=== PATIENT | female | born 1955 | race Caucasian/White ===

== ENCOUNTER 2016-12-03 01:52 | Observation (INO) ==
[2016-12-03] MEDS ORDERED: Naloxone 0.4 MG/ML INJ IVP PRN (02:29)
--- NOTE | 2016-12-03 02:38 | Internal Med History&Physical ---
Date of Encounter: 12/03/16 Time of Encounter: 02:35 Assessment and Plan (1) TIA (transient ischemic attack) Current visit: Yes Status: Acute pt with a reported prior history of stroke comes in with neurologic symptoms concerning for a possible infract head CT was unremarkable, she has an ICD in place and it is unclear if it is compatible with an MRI, for now we will consider repeat CT head in 24 hours, CTA for head and neck vessels, 2D echo for eval of LV thrombus, valvular pathology or PFO, unable to review prior echo in our EMR, neuro to weigh in, neuro checks, no need for permissive HTN since last known baseline is >24 hours Qualifiers: Transient cerebral ischemia type: other Qualified Code(s): 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 (2) Diabetes mellitus Current visit: Yes Status: Chronic last known A1c was 9.15c in 12/2015 on oral oral therapy, we will do FS ACHS with basal bolus insulin regimen, will repeat A1c Qualifiers: Diabetes mellitus type: type 2 Diabetes mellitus complication status: with neurologic complications Diabetes mellitus complication detail: with polyneuropathy Diabetes mellitus fpc insulin use: without terminal clerk use Qualified Code(s): E11.42 - Type 2 diabetes mellitus with diabetic polyneuropathy (3) CHF (congestive heart failure) Current visit: Yes Status: Chronic reported LVEF of 30%, unclear is she is adherent with medications and lifestyle recommendations, will need to verify her home medications and resume them, will continue daily weights, fluid restriction, salt restriction Qualifiers: Congestive heart failure type: systolic Congestive heart failure chronicity : chronic Qualified Code(s): I50.22 - Chronic systolic (congestive) heart failure (4) HTN (hypertension) Current visit: Yes Status: Chronic will need to verify home medications and resume them Qualifiers: Hypertension type: essential hypertension Qualified Code(s): I10 - Essential (primary) hypertension Internal Medicine - H&P: HPI Chief complaint: face and left sided numbness Admitted From: Hospital to Hospital Transfer Plans for Post Hospital Care: Home History of present illness: Ms. Birmingham is a 61 year old female with HTN/DM was transferred here from [facility] with symptoms concerning for TIA. She reports being in her usual state of uri until 2 days prior when she noticed left facial and left sided upper and lower extremity numbness. This was the case until yesterday when she felt that her left lower extremity felt weak. She denies any preceding headache, nausea or vomiting, lightheadedness or trauma. She reported to [facility] where she had non contrast head CT that was unremarkable for a head bleed and was sent here for further evaluation. Past Med Surg Social Fam HX - Past Medical History Medical history: CHF, COPD, CVA, diabetes, hypertension, myocardial infarction Psychiatric history: no psych history - Past Surgical History Surgical History: cholecystectomy, hysterectomy, knee replacement, pacemaker/ AICD - Social History Smoking Status: Former smoker Packs per day: 2ppd for years but quit in 2013 Smokeless Tobacco Status: No Alcohol use: none Drug use: none Current living situation: Home - Independent - Family History Father History Unknown: Yes Mother Adopted: No Living Status: Hx Family Endocrine Disorder: Yes (DM) Internal Medicine - H&P: Meds Carvedilol [Coreg] 6.25 mg ORAL RINSE BID 12/03/16 [History] Furosemide [Lasix] 12/03/16 [History] Lisinopril [Zestril] 10 mg ORAL RINSE DAILY 12/03/16 [History] Allergies barium sulfate [From E-Z-Cat] Allergy (Verified 08/24/16 04:37) Hives brompheniramine [From Dimetapp Cold-Allergy (PE)] Allergy (Verified 08/24/16 04: 37) Hives ibuprofen Allergy (Verified 08/24/16 04:37) Hives iodine Allergy (Verified 08/24/16 04:37) Hives Penicillins [PCN] Allergy (Verified 08/24/16 04:37) Hives phenylephrine [From Dimetapp Cold-Allergy (PE)] Allergy (Verified 08/24/16 04:37 ) Hives wool Adverse Reaction (Verified 08/24/16 04:37) Diarrhea All Systems PM: A 10-system review of systems was performed and is negative for pertinent findings except as documented above in the HPI. - Constitutional Vitals: Vital Signs Temperature 97.5 F L 12/02/16 20:34 Pulse Rate 84 12/02/16 20:34 Respiratory Rate 16 12/02/16 20:34 Blood Pressure 133/75 12/02/16 20:34 O2 Sat by Pulse Oximetry 96 12/02/16 20:34 Temperature 98.8 F 12/02/16 23:24 Pulse Rate 85 12/02/16 23:24 Respiratory Rate 24 12/02/16 23:24 Blood Pressure 134/85 12/02/16 23:24 O2 Sat by Pulse Oximetry 98 12/02/16 23:24 PHYSICAL EXAMINATION: GENERAL: Adult female, morbidly obese looking, lying in bed with no sign of pain or distress, Alert, HEENT: NC/AT, EOMI, PERRLA, anicteric sclera, normal conjunctiva, supple, clear nares, moist mucous membranes, RESP: lungs are clear to auscultation bilaterally reduced AE at the bases CARDIO: normal heart sounds with no murmur, no JVD, GI: Soft, full, no tenderness, no organomegaly felt, normal bowel sounds heard MUSCULOSKELETAL: no deformities noted, rest per skin exam NEUROLOGIC: CN 2-12 intact grossly, normal power, tone, and sensation PSYCHIATRY: AAO x 3. Mood is fair, SKIN: right upper extremity skin ulcers with scabs, bilateral reddened shins with right worse than left Internal Med - H&P Results - EKG Data -: EKG Interpreted by Myself (paced rhythm) - Diagnostic Studies CT scan - head Status: image reviewed by me Chest x-ray Status: image reviewed by me
[2016-12-03] MEDS ORDERED: Dextrose Gel 15 GM PO PRN ×2 (02:39)
[2016-12-03] MEDS ORDERED: *HR* Dextrose 50 % in Water (Syg) 50 ML SYRINGE IVP PRN (02:39)
[2016-12-03] MEDS ORDERED: D5% in Water 1,000 ML IVC PRN (02:39)
[2016-12-03] MEDS: Insulin LISPRO 300 UNITS/3 ML VIAL SQ SCH ×5 (02:58→21:35)
[2016-12-03 07:04] LABS: BUN/Creatinine Ratio 14 (6-26); Blood Urea Nitrogen 14 mg/dL (7-20); Calcium 8.8 mg/dL (8.6-10.8); Carbon Dioxide 33 mEq/L (19-29); Chloride 98 mEq/L (98-109); Chol/HDL Ratio 3.3 (0-4.9); Cholesterol 136 mg/dL (< 200); Glucose 196 mg/dL (70-99); HDL Cholesterol 41 mg/dL (40-59); LDL Cholesterol,Calculated 73 mg/dL (0-99); Magnesium 1.5 mg/dL (1.6-2.6); Osmolality,Calculated 296 (280-300); Phosphorous 4.4 mg/dL (2.3-4.7); Sodium 140 mEq/L (136-145); Triglycerides 110 mg/dL (< 150); eGFR For African Americans > 60 (> 60); eGFR For Non-African Americans 59 (> 60)
[2016-12-03 08:24] LABS: Hemoglobin A1C 8.6 %
[2016-12-03] MEDS: Aspirin 81 MG TAB.CHEW PO SCH (08:36)
--- NOTE | 2016-12-03 12:49 | Internal Med Progress Note ---
Date of Encounter: 12/03/16 Time of Encounter: 10:10 - Assessment and plan (1) TIA (transient ischemic attack) Current Visit: Yes Status: Acute Assessment and plan: Patient has a reported prior history of stroke. She presented to ER with symptoms concerning for possible TIA. This morning patient only complains of left leg numbness. She reports to me that she never had any other symptoms other than that. Patient is extremely debilitated and obese. It is hard for her to move in the bed, it is hard to assess extremity strength due to this. Patient has an implanted pacemaker and I have contacted MRI about finding out if it is compatible and we can get an MRI. If not, she has another CAT scan ordered for 24 hours after the first one. Patient's speech is not slurred, however it is normal for her. PERRLA, no nystagmus, facial movements are symmetrical, patient follows commands. At this point in the day, the echo and carotids are not resulted. Neurology consult is also pending. 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 1.5 L fluid restriction Strict I&O Daily weight Qualifiers: Congestive heart failure type: systolic Congestive heart failure chronicity : chronic Qualified Code(s): I50.22 - Chronic systolic (congestive) heart failure (3) Edema Current Visit: No Status: Acute Assessment and plan: Plan as above Qualifiers: Edema type: unspecified Qualified Code(s): R60.9 - Edema, unspecified (4) Diabetes mellitus Current Visit: Yes Status: Chronic Assessment and plan: A1c is 8.6. Accu-Cheks before meals at bedtime Sliding scale insulin Diabetic diet Qualifiers: Diabetes mellitus type: type 2 Diabetes mellitus complication status: with neurologic complications Diabetes mellitus complication detail: with polyneuropathy Diabetes mellitus usp insulin use: without usp use Qualified Code(s): E11.42 - Type 2 diabetes mellitus with diabetic polyneuropathy (5) HTN (hypertension) Current Visit: Yes Status: Chronic Assessment and plan: Chronic. Continue home medications. Qualifiers: Hypertension type: essential hypertension Qualified Code(s): I10 - Essential (primary) hypertension (6) Morbid obesity with BMI of 50.0-59.9, adult Current Visit: Yes Status: Chronic Assessment and plan: Chronic. Lifestyle modification. (7) Physical debility Current Visit: Yes Status: Acute Assessment and plan: Patient is weak, debilitated. She is unable to assist with moving herself in the bed. She has very limited range of motion to her extremities. Physical therapy and occupational therapy consulted. - Time Spent With Patient less than 15 minutes - Subjective Interval history: Patient resting quietly in bed, she was seen and examined at about 10:10 AM. Patient was transferred here from [place]. Per her Barb nurse, ER staff at [facility] said that patient is at baseline currently. She reports continued left leg numbness. Patient does have feeling in the extremity. She does have large , mild pitting edema lower extremities. Patient has a large abdominal hernia that is not strangulated and does not cause her pain. There is no tenderness to palpation and she denies constipation. Patient does wear oxygen at home at 2 L as needed. Patient is morbidly obese and debilitated. She requires total lift assistance when we move her up in the bed. She is unable to help. She says that she lives at home with her . She states that her neighbors are helpful with her. She absolutely does not want any home health assistance at all. greeter guest services has been consult did. I have also consulted physical therapy and occupational therapy. Per charge nurse, patient lives in a camper behind her 's home, as they are . She has multiple scabbed round areas to her upper extremities, she says they are flea bites. They are not infected and not draining. Patient has an implanted pacemaker. I am waiting on MRI to let me know if it is compatible. Patient will need to stay another night for physical therapy and occupational therapy, as well as repeat CT scan or MRI in the morning. - Constitutional Vitals: Temp Pulse Resp BP Pulse Ox 97.4 F L 84 17 108/66 92 12/03/16 10:48 12/03/16 10:48 12/03/16 10:48 12/03/16 10:48 12/03/16 10:48 General appearance: Present: cooperative, A&O X 3, morbidly obese, pleasant, answers questions appropriately - Head Head exam: Present: normal inspection - Eye Eye exam: Present: normal appearance, conjuntiva pink. Absent: nystagmus - ENT ENT exam: Present: mucous membranes moist, normal exam, normal external ear exam - Neck Neck exam general surgery: Present: normal inspection. Absent: lymphadenopathy , tenderness - Respiratory Respiratory exam: Present: decreased breath sounds, CTAB. Absent: accessory muscle use, respiratory distress - Cardiovascular Cardiovascular exam: Present: RRR, +S1, +S2. Absent: diastolic murmur, systolic murmur - GI/Abdominal GI/Abdominal exam: Present: distended, hernia, normal bowel sounds, soft. Absent: hepatomegaly, pulsatile mass, tenderness - Extremities Exam Extremities exam: Present: pedal edema, warm. Absent: normal inspection, tenderness - Neurological Exam Neurological exam: Present: alert, oriented X3, no focal deficits. Absent: facial droop, speech deficit Internal Medicine: Result - Labs CBC & Chem 7: 12/03/16 05:14 Labs: BMP 12/03/16 05:14 Sodium 140 Potassium 4.0 Chloride 98 Carbon Dioxide 33 H BUN 14 Creatinine 0.97 Glucose 196 H Calcium 8.8 Consult Discharge Plan - Plan Referrals: NO,PCP [Primary Care Provider] -
[2016-12-03] MEDS: Acetaminophen 325 MG TABLET PO PRN ×2 (16:50→23:10)
--- NOTE | 2016-12-03 19:10 | Neurology - Consult Note ---
Date of Encounter: 12/03/16 Time of Encounter: 19:08 Assessment and Plan (1) Left leg pain Current Visit: Yes Status: Acute It is my suspicion that her left leg pain is either due to perhaps the left L5 radiculopathy, versus left peroneal neuropathy at the knee, versus mechanical etiologies. Unfortunately she is not a candidate for an MRI, and she is likely not a good candidate for any type of surgical procedure. My recommendation would be a trial of Neurontin perhaps 300 mg and titrate up to 3 times a day. If this is ineffective then I would simply recommend either oral pain management or referral to a pain management Center for consideration of other modalities. I am not convinced of an acute cerebral infarct as pain is generally not a prominent part of the presenting symptomatology . I will reevaluate her your request. The documentation in the history of HPI and plan were at least partially created by [employer] voice recognition technology by Dr. Amaya. Errors in grammar, wording or other phrases may exist. If errors are found after the documentation signed, they will be addressed individually in the addendum section of this document when appropriate. History of Present Illness HPI: Ms. Birmingham is a 61 year old female with a complicated history of diabetes mellitus coronary artery disease hypertension, previous TIAs and morbid obesity presents for admission to [facility] with complaints of left lower extremity pain and paresthesias. She states it is increasingly difficult for her to walk. She is able to however bear her weight and was ambulating in the halls yesterday. Today she was able to transfer from her bed to the bedside commode. She has had multiple admissions for strokelike symptoms apparently at [facility]. CT scan of the head was completed I did review the study myself and it is normal. Unfortunately she is not a candidate for MRI scan because of an internal pacemaker defibrillator. Past Med Surg Social Fam HX - Past Medical History Medical history: CHF, COPD, CVA, diabetes, hypertension, myocardial infarction Psychiatric history: no psych history - Past Surgical History Surgical History: cholecystectomy, hysterectomy, knee replacement, pacemaker/ AICD - Social History Smoking Status: Former smoker Packs per day: 2ppd for years but quit in 2013 Smokeless Tobacco Status: No Alcohol use: none Drug use: none - Family History Father History Unknown: Yes Mother Adopted: No Living Status: Hx Family Endocrine Disorder: Yes (DM) Medications and Allergies Aspirin 81 mg PO DAILY 12/03/16 [History] Calcium Carbonate [Calcium] 500 mg PO DAILY 12/03/16 [History] Cholecalciferol (D-3) [Vitamin D] 1,000 unit PO DAILY 12/03/16 [History] Cyanocobalamin (Vitamin B-12) [Vitamin B12] 1,000 mcg PO DAILY 12/03/16 [History ] Oxygen 2 l .ROUTE AD 12/03/16 [History] Allergies barium sulfate [From E-Z-Cat] Allergy (Verified 08/24/16 04:37) Hives brompheniramine [From Dimetapp Cold-Allergy (PE)] Allergy (Verified 08/24/16 04: 37) Hives ibuprofen Allergy (Verified 08/24/16 04:37) Hives iodine Allergy (Verified 08/24/16 04:37) Hives Penicillins [PCN] Allergy (Verified 08/24/16 04:37) Hives phenylephrine [From Dimetapp Cold-Allergy (PE)] Allergy (Verified 08/24/16 04:37 ) Hives wool Adverse Reaction (Verified 08/24/16 04:37) Diarrhea All Systems: A 10-system review of systems was performed and is negative for pertinent findings except as documented above in the HPI. Review of Systems: A 10 point review of systems is consistent with a history of present illness. Physical Examination - Vital Signs Vital Signs: Initial Vital Signs Temp Pulse Resp BP Pulse Ox 97.5 F L 83 18 116/73 93 12/03/16 01:50 12/03/16 01:50 12/03/16 01:50 12/03/16 01:50 12/03/16 01:50 - Exam Exam: Neurologic examinations performed and finds following: For cerebral functions as she is awake and alert follows commands and answers questions appropriately. There is no agnosia or aphasia or apraxia identified. A full Mini-Mental status assessment was not performed. Cranial nerves-pupils are equal and reactive to light and accommodation extraocular motility is intact. There is no ptosis. Sensory to face is intact. Mastication is intact. There is no facial asymmetry is identified. Speech is not dysarthric. Hearing is intact symmetrically, soft palate elevates bilaterally upon phonation. Motor examination-is difficult and not reliable due to issues of body habitus. She is very large and has giveaway weakness throughout. I find no focal or lateralized deficits however. She is able to dorsiflex and plantar flex the left foot without difficulty. Sensory exam finds paresthesias and hyperesthesia of the left lower extremity below the knee and on the dorsum of the foot. Deep tendon reflexes are absent throughout. No long track signs are identified. Results - Laboratory Findings CBC and BMP: 12/03/16 05:14 Abnormal lab findings: Abnormal lab results Carbon Dioxide 33 mEq/L (19-29) H 12/03/16 05:14 Est GFR (Non-Af Amer) 59 (> 60) L 12/03/16 05:14 Glucose 196 mg/dL (70-99) H 12/03/16 05:14 POC Glucose 213 (58-89) H 12/03/16 15:16 Hemoglobin A1c 8.6 % (-5.6) H 12/03/16 05:14 Magnesium 1.5 mg/dL (1.6-2.6) L 12/03/16 05:14 Consult Discharge Plan - Plan Referrals: NO,PCP [Primary Care Provider] -
[2016-12-03] MEDS ORDERED: Perflutren Lipid Microsphere 1.3 ML in 0.9 % Sodium Chloride 8.7 ML IVP ONE (20:40)
[2016-12-04] MEDS: Nystatin POWDER 30 GM BOTTLE TP SCH ×3 (00:35→19:45)
[2016-12-04 04:16] LABS: BUN/Creatinine Ratio 19 (6-26); Blood Urea Nitrogen 19 mg/dL (7-20); Calcium 8.5 mg/dL (8.6-10.8); Carbon Dioxide 28 mEq/L (19-29); Chloride 100 mEq/L (98-109); Glucose 187 mg/dL (70-99); Osmolality,Calculated 291 (280-300); Potassium 4.9 mEq/L (3.5-4.5); Sodium 137 mEq/L (136-145); eGFR For African Americans > 60 (> 60); eGFR For Non-African Americans 58 (> 60)
[2016-12-04 04:36] LABS: Hematocrit 33.9 % (35.3-44.9); Hemoglobin 10.3 g/dL (11.5-15.4); Mean Corpuscular HGB Conc 30.4 g/dL (31.6-35.5); Mean Corpuscular Hemoglobin 27.8 pg (28.0-33.3); Mean Corpuscular Volume 91.6 fL (83.0-100.0); Platelet Count 238 K/mcL (140-400); Red Cell Distribution Width 18.4 % (11.5-14.5)
[2016-12-04 04:37] LABS: Basophils # 0.1 K/mcL (0.0-0.2); Basophils % 0.6 %; Eosinophils # 0.5 K/mcL (0.0-0.6); Eosinophils % 3.7 %; Lymphocytes # 3.2 K/mcL (0.6-4.6); Lymphocytes % 23.5 %; Mean Platelet Volume 10.9 fL (9.4-12.4); Monocytes # 0.9 K/mcL (0.0-1.3); Monocytes % 6.4 %; Neutrophils # 8.9 K/mcL (1.6-8.9); Nucleated Red Blood Cells 0.1 /100 WBC (0); Platelet Estimate Normal (Normal); Segmented Neutrophils % 65.2 %
--- NOTE | 2016-12-04 07:24 | ECHO - Doppler Report ---
Echo with Saline and Imaging Enhancement Agent Name: Katelyn Birmingham Date of Study: 12/03/2016 Date: 1955 Ht: 67.0 in Medical Record#: [id number] Age: 61 Wt: 350.0 lb Gender: Female BSA: 2.57 Order #: [id number] Location: [facility] Room #: [id number] Reading Physician: Dannie Harmon MD, [facility] Welder: Loreta Parr Ordering Physician: Cristopher Ulloa MD Primary Physician: None Indications: Stroke workup Impressions: Technically sub-optimal due to body habitus. Echo contrast was used. Moderately dilated left ventricle. Moderate-severe LV systolic dysfunction, LVEF 35%. There is global hypokinesis with regional variations. Mild-moderate concentric left ventricular hypertrophy. Moderate left ventricular diastolic dysfunction. Mildly dilated right ventricle with normal systolic function. Moderately dilated left atrium. No evidence of intracardiac shunting with agitated saline contrast. No significant valvular dysfunction. Mild pulmonary hypertension. Estimated RVSP = 36 mmHg. Left Ventricular Wall Motion: Rest Echo Findings The apex, apical inferior, mid inferior, basal inferior, apical anterior, mid anterior, basal anterior, apical septal, mid inferior septal, basal inferior septal, apical lateral, mid anterior lateral, basal anterior lateral, mid anterior septal, mid inferior lateral, basal anterior septal and basal inferior lateral chase were hypokinetic. Findings: Study Quality * Technically sub-optimal due to body habitus. Echo contrast was used. ECG Findings * Sinus rhythm with BBB. Left Ventricle * Moderately dilated left ventricle. * Moderate-severe LV systolic dysfunction, LVEF 35%. There is global hypokinesis with regional variations. * Mild-moderate concentric left ventricular hypertrophy. * Moderate left ventricular diastolic dysfunction. Right Ventricle * Mildly dilated right ventricle with normal systolic function. Left Atrium * Moderately dilated left atrium. Right Atrium * Normal right atrial size. Interatrial Septum * No evidence of intracardiac shunting with agitated saline contrast. Aorta * Normally sized aortic root. Pericardium * There is no pericardial effusion present. IVC * The IVC is not well evaluated. Aortic Valve * Aortic valve not well visualized. * No aortic stenosis. * No aortic regurgitation. Mitral Valve * Mildly calcified mitral valve leaflets. * No mitral stenosis. * Trace mitral regurgitation. Tricuspid Valve * Tricuspid valve not well visualized. * No tricuspid stenosis. * Trace tricuspid regurgitation. * Mild pulmonary hypertension. Estimated RVSP = 36 mmHg. Pulmonic Valve * Pulmonic valve not well visualized. * No pulmonic stenosis. * Trace pulmonic regurgitation. History Hypertension Diabetes Hypercholesteremia Years 41 Packs 2 Family History of CAD Congestive Heart Failure Pacer/ICD Implant Contrast: Definity 1.3 ml in 8.7 ml of saline 3 ml. Agitated saline 20 ml. Measurements: BP: 99/ 64 2D Normal Values RVIDd: 4.50 cm IVSd: 1.40 cm 0.6 - 1.0 cm LVIDd: 6.00 cm 3.7 - 5.6 cm LVPWd: 1.20 cm 0.6 - 1.1 cm LVIDs: 5.00 cm 1.5 - 3.6 cm AO: 3.50 cm < 4.0 cm LA volume: 100 Mitral Valve Peak E:1.02 m/sec Peak A:.70 m/sec E/A Ratio:1.5 Peak E' Lat John:3.31 cm/s Peak E' Med John:3.7 cm/s E/E' Lat Ratio:30.8 E/E' Med Ratio:27.6 Tricuspid Valve TV Regurg Peak Grad: 31.00mmHg TV Regurg Peak John: 2.80m/sec Updated by Dannie Harmon MD, [facility] on 12/04/2016 7:19:37 AM electronically signed on 12/04/2016 7:20:21 AM with status of Final Wall Motion Garcia: 1=Normal, 2=Hypokinesis, 3=Akinesis, 4=Dyskinesis, 5=Aneurysmal, 6=Hyperkinetic, X=Not Visualized (Blank)=Missing
[2016-12-04] MEDS: Aspirin 81 MG TAB.CHEW PO SCH (09:21)
[2016-12-04] MEDS: Insulin LISPRO 300 UNITS/3 ML VIAL SQ SCH ×4 (09:21→21:35)
[2016-12-04] MEDS: Gabapentin 300 MG CAPSULE PO SCH ×2 (10:47→19:45)
[2016-12-04] MEDS: Acetaminophen 325 MG TABLET PO PRN ×2 (10:47→19:45)
[2016-12-04 10:49] LABS: Bilirubin,Urine Negative (Negative); Blood,Urine Negative (Negative); Clarity,Urine Clear (Clear); Color,Urine Yellow (Yellow); Glucose,Urine (UA) Normal (Normal); Ketones,Urine Negative (Negative); Leukocyte Esterase,Urine Negative (Negative); Nitrite,Urine Positive (Negative); Protein,Urine Negative (Neg-Trace); Specific Gravity,Urine 1.026 (1.010-1.025); Urobilinogen,Urine Normal (Normal)
[2016-12-04 10:51] LABS: Bacteria,Urine Many per hpf (None-Few); Hyaline Casts,Urine None Seen per lpf (None-Few); RBC,Urine 0-3 per hpf (0-3); Squamous Epithelial Cell,Urine Many per lpf (None-Few); WBC,Urine 0-3 per hpf (0-3)
--- NOTE | 2016-12-04 14:22 | Carotid Imaging Report ---
Carotid Duplex Patient Name:Katelyn Birmingham Order Number:[id number] Procedure Date:12/03/2016 Date:1955ge:61 yrs Gender:Female Lt BP:99 / 64 mmHg Rt.BP:99 / 64 mmHgHeart Rate: Location:[facility] Room #: 3B46 Energy Infrastructure Engineer:Loreta Parr Referring MD:Cristopher Ulloa MD commercial sales director:None Reading MD:Roberth Gamboa MD Primary Indications:Evaluate for critical stenosis Risk Factors Yes/No Hypertension Hypercholesterolemia Diabetes Hx of TIA Smoker Previous Impressions: Findings: Left mid ICA has a severe, 60-79% stenosis. Recommendations: Risk Factor Modification, Medical Therapy, and Follow up exam 12 months. Findings Carotid Duplex: Right: There is nonstenotic plaque in the right bifurcation. There is smooth heterogeneous plaque. Left: There is 40-59% stenosis in the left proximal internal carotid artery. There is smooth homogeneous plaque. There is 60-79% stenosis in the left mid internal carotid artery. There is smooth homogeneous plaque. Prior Study: No prior study available for comparison. Carotid Results Right PSV EDV Assessment Proximal CCA 105 35 Normal Mid CCA 89 32 Normal Distal CCA 74 31 Normal Bifurcation 88 36 Non Stenotic Plaque Proximal ICA 83 35 Normal Mid ICA 72 28 Normal Distal ICA 68 28 Normal ECA 72 21 Normal Vertebral Artery 65 19 Antegrade Flow Left PSV EDV Assessment Proximal CCA 119 34 Normal Mid CCA 91 25 Normal Distal CCA 87 24 Normal Bifurcation 86 31 Normal Proximal ICA 118 47 40-59% stenosis Mid ICA 138 58 60-79% stenosis Distal ICA 93 40 Normal ECA 112 20 Normal Vertebral Artery 58 24 Antegrade Flow Ratio's Right ICA/CCA Ratio: 0.93 ICA/CCA Values: 83/89 Left ICA/CCA Ratio: 1.52 ICA/CCA Values: 138/91 Updated by Roberth Gamboa MD on 12/04/2016 2:16:13 PM electronically signed on 12/04/2016 2:16:26 PM with status of Final
--- NOTE | 2016-12-04 18:12 | Internal Med Progress Note ---
Date of Encounter: 12/04/16 Time of Encounter: 10:45 - Assessment and plan (1) TIA (transient ischemic attack) Current Visit: Yes Status: Inactive Assessment and plan: Patient was seen by neurology. She is not a candidate for an MRI due to her implanted pacemaker. She has had a CAT scan 2 both with no acute intracranial abnormality. Patient reports right leg numbness. Neurology feels that it is most likely due to neuropathy. She has been started on gabapentin 300 mg twice a day. We will need to assess for effectiveness. 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 There is moderately dilated left ventricle, moderate to severe systolic dysfunction with LVEF of 35%. Global hypokinesis with regional variations. There is mild to moderate concentric LV hypertrophy there is mildly dilated right ventricle with normal systolic function, no evidence of intracardiac shunting. No significant valvular dysfunction. Mild pulmonary hypertension. Repeat chest x-ray today shows no significant change in pulmonary edema and left -sided pleural effusion. 1.5 L fluid restriction Lasix 40 mg IV daily. Strict I&O Daily weight Qualifiers: Congestive heart failure type: systolic Congestive heart failure chronicity : chronic Qualified Code(s): I50.22 - Chronic systolic (congestive) heart failure (3) Edema Current Visit: No Status: Acute Assessment and plan: Plan as above Qualifiers: Edema type: unspecified Qualified Code(s): R60.9 - Edema, unspecified (4) Diabetes mellitus Current Visit: Yes Status: Chronic Assessment and plan: A1c is 8.6. Accu-Cheks before meals at bedtime Sliding scale insulin Diabetic diet Qualifiers: Diabetes mellitus type: type 2 Diabetes mellitus complication status: with neurologic complications Diabetes mellitus complication detail: with polyneuropathy Diabetes mellitus public health insulin use: without public health use Qualified Code(s): E11.42 - Type 2 diabetes mellitus with diabetic polyneuropathy (5) HTN (hypertension) Current Visit: Yes Status: Chronic Assessment and plan: Chronic. Continue home medications. Qualifiers: Hypertension type: essential hypertension Qualified Code(s): I10 - Essential (primary) hypertension (6) Morbid obesity with BMI of 50.0-59.9, adult Current Visit: Yes Status: Chronic (7) Physical debility Current Visit: Yes Status: Acute Assessment and plan: Patient states that she would be willing to go to a rehabilitation facility to regain her strength. She said she would like to be placed somewhere near [facility] so she is close to family. Physical therapy has recommended inpatient physical therapy due to global debility. [employer] Continuous Churn on board. (8) UTI (urinary tract infection) Current Visit: Yes Status: Acute Assessment and plan: Leukocytosis this morning. Repeat chest x-ray showed no infiltrates. Pleural effusions remain. She has not had a fever today. Repeat urine shows specific gravity 1.026, positive for nitrites, no leukocyte esterase, many bacteria. Culture is pending. Prior urinary tract infection in December 2015. Culture showed Escherichia coli that was sensitive to Rocephin. Patient has been started on IV Rocephin. Will continue until culture and sensitivity are available. Qualifiers: Urinary tract infection type: acute cystitis Hematuria presence: without hematuria Qualified Code(s): N30.00 - Acute cystitis without hematuria - Time Spent With Patient less than 15 minutes - Subjective Interval history: Patient resting quietly in bed, she was seen and examined at about 10:10 AM. Patient was transferred here from [place]. Per her Barb nurse, ER staff at [facility] said that patient is at baseline currently. She reports continued left leg numbness. Patient does have feeling in the extremity. She does have large , mild pitting edema lower extremities. Patient has a large abdominal hernia that is not strangulated and does not cause her pain. There is no tenderness to palpation and she denies constipation. Patient does wear oxygen at home at 2 L as needed. Patient is morbidly obese and debilitated. She requires total lift assistance when we move her up in the bed. She is unable to help. She says that she lives at home with her . She states that her neighbors are helpful with her. She absolutely does not want any home health assistance at all. administrative services director has been consult did. I have also consulted physical therapy and occupational therapy. Per charge nurse, patient lives in a camper behind her 's home, as they are . She has multiple scabbed round areas to her upper extremities, she says they are flea bites. They are not infected and not draining. Patient has an implanted pacemaker. I am waiting on MRI to let me know if it is compatible. Patient will need to stay another night for physical therapy and occupational therapy, as well as repeat CT scan or MRI in the morning. - Constitutional Vitals: Temp Pulse Resp BP Pulse Ox 98.0 F 77 19 124/66 92 12/04/16 11:15 12/04/16 13:48 12/04/16 13:48 12/04/16 16:01 12/04/16 13:48 General appearance: Present: cooperative, A&O X 3, morbidly obese, pleasant, answers questions appropriately - Head Head exam: Present: normal inspection - Eye Eye exam: Present: normal appearance, PERRL, conjuntiva pink. Absent: nystagmus - ENT ENT exam: Present: mucous membranes moist, normal exam, normal external ear exam - Neck Neck exam general surgery: Present: normal inspection. Absent: lymphadenopathy , tenderness - Respiratory Respiratory exam: Present: decreased breath sounds, CTAB. Absent: rales, respiratory distress, rhonchi, wheezes - Cardiovascular Cardiovascular exam: Present: RRR, +S1, +S2, tachycardia. Absent: diastolic murmur, irregular rhythm - Neurological Exam Neurological exam: Present: alert, oriented X3, no focal deficits, strengths equal and symetr throughout. Absent: facial droop, speech deficit Internal Medicine: Result - Labs CBC & Chem 7: 12/04/16 03:33 12/04/16 03:33 Labs: Short CBC 12/04/16 Range/Units 03:33 WBC 13.7 H (4.3-11.1) K/mcL Hgb 10.3 L D (11.5-15.4) g/dL Hct 33.9 L (35.3-44.9) % Plt Count 238 (140-400) K/mcL Neutrophils # 8.9 (1.6-8.9) K/mcL BMP 12/04/16 03:33 Sodium 137 Potassium 4.9 H Chloride 100 Carbon Dioxide 28 BUN 19 Creatinine 0.98 Glucose 187 H Calcium 8.5 L Urine 12/04/16 Range/Units 10:15 Urine Color Yellow (Yellow) Urine Clarity Clear (Clear) Urine pH 5.0 (5.0-8.0) pH Units Ur Specific [place] 1.026 H (1.010-1.025) Urine Protein Negative (Neg-Trace) mg/dL Urine Glucose (UA) Normal (Normal) mg/dL - Impressions Impressions Chest X-Ray 12/04/16 09:38 IMPRESSION: No significant change in pulmonary edema and left-sided pleural effusion. D/ / Starr Martinez MD / Starr Martinez MD Interpreting Provider: Starr Martinez MD Head CT 12/04/16 20:30 IMPRESSION: No acute intracranial abnormality. D/ / Russell Jimenez MD / Russell Jimenez MD Interpreting Provider: Russell Jimenez MD Consult Discharge Plan - Plan Referrals: NO,PCP [Primary Care Provider] -
[2016-12-04] MEDS: Furosemide 40 MG/4 ML VIAL IVP SCH (19:44)
[2016-12-05] MEDS: Acetaminophen 325 MG TABLET PO PRN ×2 (06:12→21:46)
[2016-12-05 06:30] LABS: Basophils # 0.1 K/mcL (0.0-0.2); Basophils % 0.5 %; Eosinophils # 0.5 K/mcL (0.0-0.6); Eosinophils % 3.5 %; Hematocrit 32.9 % (35.3-44.9); Immature Granulocytes % 0.5 % (0-4); Lymphocytes # 3.1 K/mcL (0.6-4.6); Lymphocytes % 23.2 %; Mean Corpuscular HGB Conc 30.4 g/dL (31.6-35.5); Mean Corpuscular Hemoglobin 27.3 pg (28.0-33.3); Mean Corpuscular Volume 89.9 fL (83.0-100.0); Mean Platelet Volume 10.2 fL (9.4-12.4); Monocytes # 0.7 K/mcL (0.0-1.3); Monocytes % 5.2 %; Neutrophils # 8.8 K/mcL (1.6-8.9); Nucleated Red Blood Cells 0.2 /100 WBC (0); Platelet Count 247 K/mcL (140-400); Red Blood Count 3.66 M/mcL (3.82-4.97); Red Cell Distribution Width 18.1 % (11.5-14.5); Segmented Neutrophils % 67.1 %
[2016-12-05 06:47] LABS: BUN/Creatinine Ratio 22 (6-26); Blood Urea Nitrogen 23 mg/dL (7-20); Calcium 8.5 mg/dL (8.6-10.8); Carbon Dioxide 34 mEq/L (19-29); Chloride 96 mEq/L (98-109); Glucose 182 mg/dL (70-99); Osmolality,Calculated 292 (280-300); Potassium 4.9 mEq/L (3.5-4.5); Sodium 137 mEq/L (136-145); eGFR For African Americans > 60 (> 60); eGFR For Non-African Americans 55 (> 60)
[2016-12-05] MEDS: Nystatin POWDER 30 GM BOTTLE TP SCH ×2 (09:19→21:42)
[2016-12-05] MEDS: Insulin LISPRO 300 UNITS/3 ML VIAL SQ SCH ×4 (09:19→21:42)
[2016-12-05] MEDS: Furosemide 40 MG/4 ML VIAL IVP SCH (09:19)
[2016-12-05] MEDS: Gabapentin 300 MG CAPSULE PO SCH ×2 (09:20→21:41)
[2016-12-05] MEDS: Aspirin 81 MG TAB.CHEW PO SCH (09:20)
--- NOTE | 2016-12-05 17:46 | Internal Med Progress Note ---
Date of Encounter: 12/05/16 Time of Encounter: 09:45 - Assessment and plan (1) TIA (transient ischemic attack) Current Visit: Yes Status: Inactive Assessment and plan: Patient was seen by neurology. She is not a candidate for an MRI due to her implanted pacemaker. She has had a CAT scan 2 both with no acute intracranial abnormality. Patient reports right leg numbness. Neurology feels that it is most likely due to neuropathy. She has been started on gabapentin 300 mg twice a day. We will need to assess for effectiveness. Symptoms have resolved. Patient is neurologically intact. 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 Patient does have some dyspnea with moving in the bed, however she is obese and deconditioned. She is supple mental oxygen, she has oxygen at home as well. Continue to monitor 1.5 L fluid restriction Lasix 40 mg IV daily. Strict I&O Daily weight Qualifiers: Congestive heart failure type: systolic Congestive heart failure chronicity : chronic Qualified Code(s): I50.22 - Chronic systolic (congestive) heart failure (3) Edema Current Visit: No Status: Acute Assessment and plan: Plan as above Qualifiers: Edema type: unspecified Qualified Code(s): R60.9 - Edema, unspecified (4) Diabetes mellitus Current Visit: Yes Status: Chronic Assessment and plan: Chronic. Continue sliding scale insulin Accu-Cheks before meals at bedtime Diabetic diet Hypoglycemia protocol Qualifiers: Diabetes mellitus type: type 2 Diabetes mellitus complication status: with neurologic complications Diabetes mellitus complication detail: with polyneuropathy Diabetes mellitus jail insulin use: without jail use Qualified Code(s): E11.42 - Type 2 diabetes mellitus with diabetic polyneuropathy (5) HTN (hypertension) Current Visit: Yes Status: Chronic Assessment and plan: Blood pressures been well controlled in inpatient setting. We will continue home medications. Qualifiers: Hypertension type: essential hypertension Qualified Code(s): I10 - Essential (primary) hypertension (6) Morbid obesity with BMI of 50.0-59.9, adult Current Visit: Yes Status: Chronic (7) Physical debility Current Visit: Yes Status: Acute Assessment and plan: Continue PT and OT. Still waiting on rehabilitation/ECF placement (8) UTI (urinary tract infection) Current Visit: Yes Status: Acute Assessment and plan: Leukocytosis marginally better this morning. Repeat chest x-ray showed no infiltrates. Pleural effusions remain. She has not had a fever today. Repeat urine shows specific gravity 1.026, positive for nitrites, no leukocyte esterase , many bacteria. Culture shows gram-negative rods. Prior urinary tract infection in December 2015. Culture showed Escherichia coli that was sensitive to Rocephin. Patient has been started on IV Rocephin. Will continue until final culture and sensitivity are available. Qualifiers: Urinary tract infection type: acute cystitis Hematuria presence: without hematuria Qualified Code(s): N30.00 - Acute cystitis without hematuria (9) Tick bite of abdomen Current Visit: Yes Status: Acute Assessment and plan: Today while patient was being helped with her bath, staff noticed that there was a tic on patient's low mid abdomen. I did remove it successfully and made sure that it was intact. I cleaned the site afterwards. Lyme disease lab is negative, recommend spotted fever still pending. The tech did have a white dot on its back and was identified as a [employer] tick. Patient will need to be monitored for erythema migrans type rash and flulike symptoms. Consult ID for recommendations for further testing. Qualifiers: Encounter type: initial encounter Qualified Code(s): S30.861A - Insect bite (nonvenomous) of abdominal wall, initial encounter; W57.XXXA - Bitten or stung by nonvenomous insect and other nonvenomous arthropods, initial encounter - Time Spent With Patient less than 15 minutes - Subjective Interval history: Patient was seen and assessed at about 9:45 AM. She is resting quietly in the bed. She said that her left leg is feeling some better and states that she believes the medication is helping. I was called back into the patient's room in the early afternoon, patient had a tick on her left abdomen. I removed the tick from her abdomen, it was intact. It is a [employer] tick. She will need to be watched for erythema migrans type rash as well as flulike symptoms. Lyme disease antibody is negative, recommend spotted fever lab is pending. Patient appears to be in much better spirits today. - Constitutional Vitals: Temp Pulse Resp BP Pulse Ox 98.0 F 68 16 92/62 100 12/05/16 14:59 12/05/16 14:59 12/05/16 14:59 12/05/16 14:59 12/05/16 14:59 General appearance: Present: cooperative, A&O X 3, morbidly obese, pleasant, answers questions appropriately - Head Head exam: Present: normal inspection - Eye Eye exam: Present: normal appearance, conjuntiva pink. Absent: nystagmus - ENT ENT exam: Present: mucous membranes moist, normal exam - Respiratory Respiratory exam: Present: decreased breath sounds, CTAB. Absent: rales, respiratory distress, rhonchi, stridor, wheezes - Cardiovascular Cardiovascular exam: Present: RRR, +S1, +S2. Absent: diastolic murmur, systolic murmur - GI/Abdominal GI/Abdominal exam: Present: distended, hernia, hepatomegaly, normal bowel sounds , soft. Absent: tenderness - Neurological Exam Neurological exam: Present: alert, oriented X3, no focal deficits. Absent: facial droop, speech deficit Internal Medicine: Result - Labs CBC & Chem 7: 12/05/16 06:11 12/05/16 06:11 Labs: Short CBC 12/05/16 Range/Units 06:11 WBC 13.1 H (4.3-11.1) K/mcL Hgb 10.0 L (11.5-15.4) g/dL Hct 32.9 L (35.3-44.9) % Plt Count 247 (140-400) K/mcL Neutrophils # 8.8 (1.6-8.9) K/mcL BMP 12/05/16 06:11 Sodium 137 Potassium 4.9 H Chloride 96 L Carbon Dioxide 34 H BUN 23 H Creatinine 1.03 Glucose 182 H Calcium 8.5 L Consult Discharge Plan - Plan Referrals: NO,PCP [Primary Care Provider] -
[2016-12-06] MEDS ORDERED: Doxycycline 100 MG CAPSULE PO ONE (07:30)
[2016-12-06 08:27] LABS: Basophils # 0.1 K/mcL (0.0-0.2); Basophils % 0.6 %; Eosinophils # 0.5 K/mcL (0.0-0.6); Eosinophils % 4.3 %; Hematocrit 32.5 % (35.3-44.9); Hemoglobin 10.1 g/dL (11.5-15.4); Immature Granulocytes % 0.5 % (0-4); Lymphocytes # 2.5 K/mcL (0.6-4.6); Lymphocytes % 24.5 %; Mean Corpuscular HGB Conc 31.1 g/dL (31.6-35.5); Mean Corpuscular Hemoglobin 27.8 pg (28.0-33.3); Mean Corpuscular Volume 89.5 fL (83.0-100.0); Mean Platelet Volume 10.2 fL (9.4-12.4); Monocytes # 0.7 K/mcL (0.0-1.3); Monocytes % 6.5 %; Neutrophils # 6.6 K/mcL (1.6-8.9); Nucleated Red Blood Cells 0.2 /100 WBC (0); Platelet Count 238 K/mcL (140-400); Red Blood Count 3.63 M/mcL (3.82-4.97); Red Cell Distribution Width 17.5 % (11.5-14.5); Segmented Neutrophils % 63.6 %
[2016-12-06 08:29] LABS: BUN/Creatinine Ratio 28 (6-26); Blood Urea Nitrogen 23 mg/dL (7-20); Calcium 8.7 mg/dL (8.6-10.8); Carbon Dioxide 37 mEq/L (19-29); Chloride 95 mEq/L (98-109); Glucose 152 mg/dL (70-99); Osmolality,Calculated 295 (280-300); Potassium 4.8 mEq/L (3.5-4.5); Sodium 139 mEq/L (136-145); eGFR For African Americans > 60 (> 60); eGFR For Non-African Americans > 60 (> 60)
[2016-12-06] MEDS: Furosemide 40 MG/4 ML VIAL IVP SCH (09:00)
[2016-12-06] MEDS: Aspirin 81 MG TAB.CHEW PO SCH (09:00)
[2016-12-06] MEDS: Nystatin POWDER 30 GM BOTTLE TP SCH ×2 (09:00→21:10)
[2016-12-06] MEDS: Gabapentin 300 MG CAPSULE PO SCH ×2 (09:00→21:10)
[2016-12-06] MEDS: Insulin LISPRO 300 UNITS/3 ML VIAL SQ SCH ×4 (09:01→21:10)
--- NOTE | 2016-12-06 15:28 | Internal Med Progress Note ---
Date of Encounter: 12/06/16 Time of Encounter: 10:45 - Assessment and plan (1) CHF (congestive heart failure) Current Visit: Yes Status: Chronic Assessment and plan: Lungs are clear and diminished. Patient does have some dyspnea with moving in the bed, however she is obese and deconditioned. She is supple mental oxygen, she has oxygen at home as well. Peripheral edema to dot LE much improved. I have stopped Lasix at this time. Continue to monitor. 1.5 L fluid restriction Strict I&O Daily weight Telemetry Qualifiers: Congestive heart failure type: systolic Congestive heart failure chronicity : chronic Qualified Code(s): I50.22 - Chronic systolic (congestive) heart failure (2) Edema Current Visit: No Status: Acute Assessment and plan: Improved. Lasix has been stopped. Will continue to monitor. Qualifiers: Edema type: unspecified Qualified Code(s): R60.9 - Edema, unspecified (3) Diabetes mellitus Current Visit: Yes Status: Chronic Assessment and plan: Chronic. A1c 8.6%. Accuchecks still show hyperglycemia. Continue sliding scale insulin Accu-Cheks before meals at bedtime Diabetic diet Hypoglycemia protocol Qualifiers: Diabetes mellitus type: type 2 Diabetes mellitus complication status: with neurologic complications Diabetes mellitus complication detail: with polyneuropathy Diabetes mellitus snf insulin use: without termite helper use Qualified Code(s): E11.42 - Type 2 diabetes mellitus with diabetic polyneuropathy (4) HTN (hypertension) Current Visit: Yes Status: Chronic Assessment and plan: Well controlled inpt setting. Continue current regimen. Lasix has been stopped, will continue to monitor. Qualifiers: Hypertension type: essential hypertension Qualified Code(s): I10 - Essential (primary) hypertension (5) Morbid obesity with BMI of 50.0-59.9, adult Current Visit: Yes Status: Chronic (6) Physical debility Current Visit: Yes Status: Acute Assessment and plan: Pt was declined by [facility]. Pt is going to speak with family and see if there are other facilities that she would like to try. Since it is the weekend and Thursday is a holiday, we have time to consider options. Patient also has reported constant left leg pain. She says that she fell in June and has hurt since. She said she has had no evaluation of since that time, so x-rays were ordered. All x-rays negative for any osseous abnormality. There is mild OA in the left knee. There is soft tissue edema and all the x-rays. She has started gabapentin since she has been here for what is believed to be neuropathy to the same leg. She says pain is a little bit better. She has Tylenol when necessary. (7) UTI (urinary tract infection) Current Visit: Yes Status: Acute Assessment and plan: Culture shows E. coli, is sensitive to Rocephin and Macrobid. Will switch pt over to po atb. Qualifiers: Urinary tract infection type: acute cystitis Hematuria presence: without hematuria Qualified Code(s): N30.00 - Acute cystitis without hematuria (8) Tick bite of abdomen Current Visit: Yes Status: Acute Assessment and plan: I checked site today during exam. No redness, drainage or swelling noted. Pt was given Doxycycline 200mg po x 1 and ID was consulted. Continue to monitor pt for rash, fever, or flu like symptoms. 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 She is resting quietly in bed on her left side. Today she reports that her left leg is hurting again and requests x-rays. All of the x-rays show no acute osseous abnormality there is mild OA to the left knee. And diffuse soft tissue edema. Patient's legs actually do appear to be less edematous than prior. Patient's was here today. He does not add much to the story. Patient is aware that she has been declined by [facility] and states that she will speak to her sister regarding other facilities that she would like to try. We will reevaluate tomorrow since due to the and Thursday being Memorial Day, she will not be going anywhere. I checked the site where the tick was on her low abd , there is no sign of redness or infection. She was given Doxy 200mg po x 1 today for prophylaxis and ID has been consulted. - Constitutional Vitals: Temp Pulse Resp BP Pulse Ox 97.8 F 70 16 111/60 94 12/06/16 11:04 12/06/16 11:04 12/06/16 11:04 12/06/16 11:04 12/06/16 11:04 General appearance: Present: cooperative, A&O X 3, morbidly obese, pleasant, answers questions appropriately - Head Head exam: Present: normal inspection - Eye Eye exam: Present: conjuntiva pink - ENT ENT exam: Present: mucous membranes moist, normal exam - Respiratory Respiratory exam: Present: decreased breath sounds, CTAB. Absent: chest wall tenderness, rales, rhonchi, stridor, wheezes - Cardiovascular Cardiovascular exam: Present: RRR, +S1, +S2. Absent: diastolic murmur, systolic murmur - GI/Abdominal GI/Abdominal exam: Present: normal bowel sounds, soft. Absent: hepatomegaly, tenderness - Extremities Exam Extremities exam: Present: normal inspection, pedal edema, warm, radial pulses palpable and symetrical. Absent: tenderness Additional comments: Legs appear to be less edematous, less red than on arrival. - Neurological Exam Neurological exam: Present: alert, oriented X3, no focal deficits, strengths equal and symetr throughout Internal Medicine: Result - Labs CBC & Chem 7: 12/06/16 08:02 12/06/16 08:02 Labs: Short CBC 12/06/16 Range/Units 08:02 WBC 10.4 (4.3-11.1) K/mcL Hgb 10.1 L (11.5-15.4) g/dL Hct 32.5 L (35.3-44.9) % Plt Count 238 (140-400) K/mcL Neutrophils # 6.6 (1.6-8.9) K/mcL BMP 12/06/16 08:02 Sodium 139 Potassium 4.8 H Chloride 95 L Carbon Dioxide 37 H BUN 23 H Creatinine 0.83 Glucose 152 H Calcium 8.7 - Impressions Impressions Ankle X-Ray 12/06/16 11:29 IMPRESSION: 1. No acute osseous abnormality of the left ankle. 2. No acute osseous abnormality of the left foot. 3. Nonspecific soft tissue edema. D/ / 12/06/2016 12:58:24 Yonas Garrison MD / Mehnaz Baires Interpreting Provider: Yonas Garrison MD Foot X-Ray 12/06/16 11:29 IMPRESSION: 1. No acute osseous abnormality of the left ankle. 2. No acute osseous abnormality of the left foot. 3. Nonspecific soft tissue edema. D/ / 12/06/2016 12:58:24 Yonas Garrison MD / Mehnaz Baires Interpreting Provider: Yonas Garrison MD Knee X-Ray 12/06/16 11:29 IMPRESSION: 1. No acute osseous abnormality of the left knee. Moderate tricompartmental osteoarthritis. 2. No acute osseous abnormality of the left tibia/fibula. 3. Diffuse soft tissue edema. D/ / 12/06/2016 12:59:36 Yonas Garrison MD / Mehnaz Baires Interpreting Provider: Yonas Garrison MD Tibia/Fibula X-Ray 12/06/16 11:29 IMPRESSION: 1. No acute osseous abnormality of the left knee. Moderate tricompartmental osteoarthritis. 2. No acute osseous abnormality of the left tibia/fibula. 3. Diffuse soft tissue edema. D/ / 12/06/2016 12:59:36 Yonas Garrison MD / Mehnaz Baires Interpreting Provider: Yonas Garrison MD Consult Discharge Plan - Plan Referrals: NO,PCP [Primary Care Provider] -
[2016-12-06] MEDS: Nitrofurantoin (BID) 100 MG CAPSULE PO SCH (17:10)
[2016-12-06] MEDS: Acetaminophen 325 MG TABLET PO PRN (21:10)
[2016-12-07] MEDS: Gabapentin 300 MG CAPSULE PO SCH ×2 (08:47→20:55)
[2016-12-07] MEDS: Nitrofurantoin (BID) 100 MG CAPSULE PO SCH ×2 (08:47→17:05)
[2016-12-07] MEDS: Nystatin POWDER 30 GM BOTTLE TP SCH ×2 (08:47→20:55)
[2016-12-07] MEDS: Insulin LISPRO 300 UNITS/3 ML VIAL SQ SCH ×4 (08:47→20:54)
[2016-12-07] MEDS: Aspirin 81 MG TAB.CHEW PO SCH (08:48)
--- NOTE | 2016-12-07 12:56 | Internal Med Progress Note ---
Date of Encounter: 12/07/16 Time of Encounter: 08:30 - Assessment and plan (1) CHF (congestive heart failure) Current Visit: Yes Status: Acute Assessment and plan: Acute on chronic combined congestive heart failure. Patient was treated for this with IV Lasix. We will transition to oral Lasix now. Doing well overall. Qualifiers: Congestive heart failure type: combined Congestive heart failure chronicity : acute on chronic Qualified Code(s): I50.43 - Acute on chronic combined systolic (congestive) and diastolic (congestive) heart failure (2) Diabetes mellitus Current Visit: Yes Status: Chronic Assessment and plan: Blood sugars are slightly elevated. Will place patient on long-acting insulin. Qualifiers: Diabetes mellitus type: type 2 Diabetes mellitus complication status: with neurologic complications Diabetes mellitus complication detail: with polyneuropathy Diabetes mellitus halfway insulin use: without terminal computer operator use Qualified Code(s): E11.42 - Type 2 diabetes mellitus with diabetic polyneuropathy (3) HTN (hypertension) Current Visit: Yes Status: Chronic Assessment and plan: Well-controlled Qualifiers: Hypertension type: essential hypertension Qualified Code(s): I10 - Essential (primary) hypertension (4) Physical debility Current Visit: Yes Status: Acute Assessment and plan: Evaluated by physical therapy. Recommend placement to skilled rehabilitation. workers' compensation magistrate and case management working on this. (5) UTI (urinary tract infection) Current Visit: Yes Status: Acute Assessment and plan: Urine culture positive for Escherichia coli. Has been started on Macrobid. Complete treatment course for a total of 7 days. Qualifiers: Urinary tract infection type: acute cystitis Hematuria presence: without hematuria Qualified Code(s): N30.00 - Acute cystitis without hematuria - Subjective Interval history: Patient is sitting up in bed. Appears comfortable. Denies any shortness of breath. No chest pain. Has chronic generalized body aches. - Constitutional Vitals: Temp Pulse Resp BP Pulse Ox 97.5 F L 64 16 129/68 94 12/07/16 11:34 12/07/16 11:34 12/07/16 11:34 12/07/16 11:34 12/07/16 11:34 General appearance: Present: cooperative, mild distress, A&O X 3, morbidly obese , pleasant, answers questions appropriately - Eye Eye exam: Present: EOMI, PERRL, conjuntiva pink, sclera anicteric - Respiratory Respiratory exam: Present: CTAB. Absent: accessory muscle use, rales, rhonchi, wheezes - Cardiovascular Cardiovascular exam: Present: RRR, +S1, +S2. Absent: diastolic murmur, gallop, rubs, systolic murmur - GI/Abdominal GI/Abdominal exam: Present: normal bowel sounds, soft, no peritoneal signs. Absent: distended, tenderness - Extremities Exam Extremities exam: Present: pedal edema (Trace bilateral nonpitting), warm, radial pulses palpable and symetrical. Absent: calf tenderness, cyanotic - Neurological Exam Neurological exam: Present: alert, oriented X3, no focal deficits. Absent: facial droop, speech deficit - Skin Skin exam: Present: dry, intact Internal Medicine: Result - Labs CBC & Chem 7: 12/06/16 08:02 12/06/16 08:02 - Impressions Impressions Ankle X-Ray 12/06/16 11:29 IMPRESSION: 1. No acute osseous abnormality of the left ankle. 2. No acute osseous abnormality of the left foot. 3. Nonspecific soft tissue edema. D/ / 12/06/2016 12:58:24 Yonas Garrison MD / Mehnaz Baires Interpreting Provider: Yonas Garrison MD Foot X-Ray 12/06/16 11:29 IMPRESSION: 1. No acute osseous abnormality of the left ankle. 2. No acute osseous abnormality of the left foot. 3. Nonspecific soft tissue edema. D/ / 12/06/2016 12:58:24 Yonas Garrison MD / Mehnaz Baires Interpreting Provider: Yonas Garrison MD Knee X-Ray 12/06/16 11:29 IMPRESSION: 1. No acute osseous abnormality of the left knee. Moderate tricompartmental osteoarthritis. 2. No acute osseous abnormality of the left tibia/fibula. 3. Diffuse soft tissue edema. D/ / 12/06/2016 12:59:36 Yonas Garrison MD / Mehnaz Baires Interpreting Provider: Yonas Garrison MD Tibia/Fibula X-Ray 12/06/16 11:29 IMPRESSION: 1. No acute osseous abnormality of the left knee. Moderate tricompartmental osteoarthritis. 2. No acute osseous abnormality of the left tibia/fibula. 3. Diffuse soft tissue edema. D/ / 12/06/2016 12:59:36 Yonas Garrison MD / Mehnaz Baires Interpreting Provider: Yonas Garrison MD Consult Discharge Plan - Plan Referrals: NO,PCP [Primary Care Provider] - - Attending Attestation This document has been at least partially created by [employer] recognition technology by Dr. Calderon. Errors in grammar, wording or other phrases may exist. If errors are found after the documentation is signed, they will be addressed individually in the addendum section of this document when appropriate.
[2016-12-07] MEDS: Furosemide 20 MG TABLET PO SCH (17:05)
[2016-12-07] MEDS: Insulin DETEMIR 100 UNIT/ML X5UNITS SQ SCH (20:55)
[2016-12-07] MEDS: Acetaminophen 325 MG TABLET PO PRN (21:01)
[2016-12-08] MEDS: Nitrofurantoin (BID) 100 MG CAPSULE PO SCH ×2 (07:43→17:29)
[2016-12-08] MEDS: Aspirin 81 MG TAB.CHEW PO SCH (07:44)
[2016-12-08] MEDS: Acetaminophen 325 MG TABLET PO PRN ×2 (07:44→21:17)
[2016-12-08] MEDS: Nystatin POWDER 30 GM BOTTLE TP SCH ×2 (07:45→22:16)
[2016-12-08] MEDS: Furosemide 20 MG TABLET PO SCH ×2 (07:45→17:29)
[2016-12-08] MEDS: Insulin LISPRO 300 UNITS/3 ML VIAL SQ SCH ×4 (07:45→20:42)
[2016-12-08] MEDS: Gabapentin 300 MG CAPSULE PO SCH ×2 (07:45→20:42)
--- NOTE | 2016-12-08 11:07 | Discharge Summary ---
Date of Encounter: 12/08/16 Time of Encounter: 08:50 - Discharge Diagnosis (1) CHF (congestive heart failure) Priority: Primary Status: Acute Qualifiers: Congestive heart failure type: combined Congestive heart failure chronicity : acute on chronic Qualified Code(s): I50.43 - Acute on chronic combined systolic (congestive) and diastolic (congestive) heart failure (2) Diabetes mellitus Priority: Secondary Status: Chronic Qualifiers: Diabetes mellitus type: type 2 Diabetes mellitus complication status: with neurologic complications Diabetes mellitus complication detail: with polyneuropathy Diabetes mellitus fdc insulin use: without fdc use Qualified Code(s): E11.42 - Type 2 diabetes mellitus with diabetic polyneuropathy (3) HTN (hypertension) Priority: Secondary Status: Chronic Qualifiers: Hypertension type: essential hypertension Qualified Code(s): I10 - Essential (primary) hypertension (4) Physical debility Priority: Secondary Status: Acute (5) UTI (urinary tract infection) Priority: Secondary Status: Acute Qualifiers: Urinary tract infection type: acute cystitis Hematuria presence: without hematuria Qualified Code(s): N30.00 - Acute cystitis without hematuria - Discharge Medications Prescriptions: Insulin Degludec [Tresiba Flextouch U-100] 15 unit SQ DAILY #1 insuln.pen Home Medications: Aspirin 81 mg PO DAILY 12/03/16 [History] Calcium Carbonate [Calcium] 500 mg PO DAILY 12/03/16 [History] Cholecalciferol (D-3) [Vitamin D] 1,000 unit PO DAILY 12/03/16 [History] Cyanocobalamin (Vitamin B-12) [Vitamin B12] 1,000 mcg PO DAILY 12/03/16 [History ] Oxygen 2 l .ROUTE AD 12/03/16 [History] Atorvastatin [Lipitor] 80 mg PO HS tablet 12/08/16 [Rx] Carvedilol [Coreg] 6.25 mg PO BIDWM tablet 12/08/16 [Rx] Furosemide [Lasix] 20 mg PO BIDDIURETIC tablet 12/08/16 [Rx] Gabapentin [Neurontin] 300 mg PO BID capsule 12/08/16 [Rx] Insulin Degludec [Tresiba Flextouch U-100] 15 unit SQ DAILY #1 insuln.pen [Rx] Insulin LISPRO [HumaLOG] 5 units SQ TIDAC vial 12/08/16 [Rx] Lisinopril [Zestril] 10 mg PO DAILY tablet 12/08/16 [Rx] Nitrofurantoin (BID) [Macrobid] 100 mg PO BIDWM #3 capsule 12/08/16 [Rx] Allergies/Adverse Reactions: Allergies barium sulfate [From E-Z-Cat] Allergy (Verified 08/24/16 04:37) Hives brompheniramine [From Dimetapp Cold-Allergy (PE)] Allergy (Verified 08/24/16 04: 37) Hives ibuprofen Allergy (Verified 08/24/16 04:37) Hives iodine Allergy (Verified 08/24/16 04:37) Hives Penicillins [PCN] Allergy (Verified 08/24/16 04:37) Hives phenylephrine [From Dimetapp Cold-Allergy (PE)] Allergy (Verified 08/24/16 04:37 ) Hives wool Adverse Reaction (Verified 08/24/16 04:37) Diarrhea Date of admission: 12/03/16 01:52 Primary care physician: PCP NO Consults: 12/03/16 02:11 Consult to Boiler/Chiller Operator [CONS] Routine Reason for SW Consult: continue home services 12/03/16 02:40 Consult to Neurology [CONS] Routine Consulting Provider: [facility] Reason for Consult: pls assist in managing this pt with concern for TIA, thanks Call Completed: No 12/03/16 13:03 Consult to Occupational Therapy [CONS] Routine Comment: Evaluate, develop and implement POC Reason for Consult: debility Consult to Physical Therapy [CONS] Routine Comment: Evaluate, develop and implement POC Reason for Consult: debility, weakness 12/06/16 07:31 Consult to Infectious Diseases [CONS] Routine Consulting Provider: Infectious Disease [place] Reason for Consult: Pt admitted for 2 days, found tick on low abd. Identified as [place] Tick. Lyme/RMSF labs collected. Doxy prophylaxis given. Call Completed: No Discharging clinician: Lashell Calderon Anticipated date of discharge: 12/09/16 - Patient Status Disposition: Transfer SNF Condition: Fair Functional capacity at discharge: uses cane/walker Overall status at discharge: patient is progressing back to baseline - Discharge Instructions Instructions: Heart Failure (DC), Diabetes Mellitus Type 2 in Adults (DC) Follow Up With: NO,PCP [Primary Care Provider] - (Follow-up in 1-2 weeks) Additional Instructions: Follow-up with vascular surgery in 6 months for carotid artery stenosis Follow-up with cardiology in 1-2 weeks for congestive heart failure and cardiomyopathy - Diet and Activity Activity: as per physical therapy Diet: diabetic diet, low fat, low cholesterol, low salt diet, other (Fluid restriction to 1.5 L per day) Hospital course: Ms. Birmingham is a 61 year old female patient with a history of essential hypertension, diabetes, COPD, CHF was hospitalized here after reporting symptoms of left upper and lower extremity weakness along with some left facial weakness with concerns for TIA. She was worked up for this with CT of the head which did not show any acute signs of stroke. As the patient has a pacemaker, she was unable to complete an MRI. Carotid artery imaging showed mid ICA stenosis of 60-79% on the left side. This will need follow-up as outpatient for further management. 2-D echocardiogram showed that the patient had anemia for 35% with global hypokinesis and moderate left ventricular diastolic dysfunction. There was no intracardiac shunting. Patient was evaluated by neurology and the one not convinced that the patient had an acute stroke based on her symptoms. She may have underlying left L5 radiculopathy but the patient was unable to undergo MRI because of her pacemaker. She was started on Neurontin with improvement in her symptoms. She has also been recommended referral to outpatient pain management for further management. Patient was also diagnosed with acute congestive heart failure and was treated for this with Lasix. She has had good response to Lasix with improvement in her pedal edema. She was also diagnosed with UTI with Escherichia coli and will be treated for this with Macrobid to complete treatment course. She was evaluated by physical therapy and recommended placement to skilled rehabilitation. Patient will be discharged when she has a bed available for her at a rehabilitation facility. unit control worker is working on this. Patient was also found to have a tick on her abdomen which was removed. Her blood tests have been negative for Lyme disease. - Time Spent with Patient Total time spent providing and/or coordinating discharge services: Greater than 30 minutes (35 min) - Constitutional Vitals: Temp Pulse Resp BP Pulse Ox 97.7 F 78 17 112/51 96 12/08/16 10:12/08/16 10:12/08/16 10:29 12/08/16 10:12/08/16 10:29 General appearance: Present: cooperative, mild distress, A&O X 3, morbidly obese , pleasant, answers questions appropriately - Neck Neck exam general surgery: Present: supple, trachea midline. Absent: lymphadenopathy - Respiratory Respiratory exam: Present: CTAB. Absent: accessory muscle use, rales, rhonchi, wheezes - Cardiovascular Cardiovascular exam: Present: RRR, +S1, +S2. Absent: diastolic murmur, gallop, rubs, systolic murmur - Extremities Exam Extremities exam: Present: pedal edema, warm, radial pulses palpable and symetrical. Absent: calf tenderness, cyanotic - Neurological Exam Neurological exam: Present: alert, oriented X3, no focal deficits. Absent: facial droop, speech deficit - Attending Attestation This document has been at least partially created by [employer] voice recognition technology by Dr. Calderon. Errors in grammar, wording or other phrases may exist. If errors are found after the documentation is signed, they will be addressed individually in the addendum section of this document when appropriate.
--- NOTE | 2016-12-08 11:24 | Physician Discharge Referral ---
ExtendedCare Referral Info Provider in Charge after Transfer: PCP Institutional Level of Care: Skilled - Diagnosis (1) CHF (congestive heart failure) Priority: Primary Status: Acute (2) Diabetes mellitus Priority: Secondary Status: Chronic (3) HTN (hypertension) Priority: Secondary Status: Chronic (4) Physical debility Priority: Secondary Status: Acute (5) UTI (urinary tract infection) Priority: Secondary Status: Acute Prognosis: Fair Aware of Diagnosis: Patient Aware of Prognosis: Patient - Transfer Medications Prescriptions: Insulin Degludec [Tresiba Flextouch U-100] 15 unit SQ DAILY #1 insuln.pen Home Medications: Aspirin 81 mg PO DAILY 12/03/16 [History] Calcium Carbonate [Calcium] 500 mg PO DAILY 12/03/16 [History] Cholecalciferol (D-3) [Vitamin D] 1,000 unit PO DAILY 12/03/16 [History] Cyanocobalamin (Vitamin B-12) [Vitamin B12] 1,000 mcg PO DAILY 12/03/16 [History ] Oxygen 2 l .ROUTE AD 12/03/16 [History] Atorvastatin [Lipitor] 80 mg PO HS tablet 12/08/16 [Rx] Carvedilol [Coreg] 6.25 mg PO BIDWM tablet 12/08/16 [Rx] Furosemide [Lasix] 20 mg PO BIDDIURETIC tablet 12/08/16 [Rx] Gabapentin [Neurontin] 300 mg PO BID capsule 12/08/16 [Rx] Insulin Degludec [Tresiba Flextouch U-100] 15 unit SQ DAILY #1 insuln.pen [Rx] Insulin LISPRO [HumaLOG] 5 units SQ TIDAC vial 12/08/16 [Rx] Lisinopril [Zestril] 10 mg PO DAILY tablet 12/08/16 [Rx] Nitrofurantoin (BID) [Macrobid] 100 mg PO BIDWM #3 capsule 12/08/16 [Rx] Allergies/Adverse Reactions: Allergies barium sulfate [From E-Z-Cat] Allergy (Verified 08/24/16 04:37) Hives brompheniramine [From Dimetapp Cold-Allergy (PE)] Allergy (Verified 08/24/16 04: 37) Hives ibuprofen Allergy (Verified 08/24/16 04:37) Hives iodine Allergy (Verified 08/24/16 04:37) Hives Penicillins [PCN] Allergy (Verified 08/24/16 04:37) Hives phenylephrine [From Dimetapp Cold-Allergy (PE)] Allergy (Verified 08/24/16 04:37 ) Hives wool Adverse Reaction (Verified 08/24/16 04:37) Diarrhea - Respiratory Orders Oxygen / L per min (Keep sats greater than 90%) Smoking Cessation: Smoking cessation has been advised. For more information, call the [place] Tobacco Quit Line at 0-955-EHBD-NOW. - Ancillary Orders May use pressure relief devices daily prn, May consult with Dentist, Sociology Adjunct Instructor, Turbo Operator PRN - Advance Directives Code Status: Full Code - Mobility Orders Other (Per physical therapy) - Rehabiliation Orders Rehab Potential: Fair Rehab Orders: Evaluation for Physical Therapy, Evaluation for Occupational Therapy - Diet Orders No Concentrated Sweets (And diabetic), Cardiac CERTIFICATION: I certify that the transfer of the above named patient to an Extended Care Facility is necessary for the continuing treatment of the diagnosis listed. The above information is true and accurate reflection of patient's current condition. Confidential - Redisclosure prohibited without a patient's written consent.
[2016-12-08] MEDS: Insulin DETEMIR 100 UNIT/ML X5UNITS SQ SCH (20:42)
[2016-12-09] MEDS: Nitrofurantoin (BID) 100 MG CAPSULE PO SCH ×2 (08:31→17:11)
[2016-12-09] MEDS: Acetaminophen 325 MG TABLET PO PRN ×2 (08:32→21:29)
[2016-12-09] MEDS: Furosemide 20 MG TABLET PO SCH ×2 (08:32→17:11)
[2016-12-09] MEDS: Aspirin 81 MG TAB.CHEW PO SCH (08:33)
[2016-12-09] MEDS: Gabapentin 300 MG CAPSULE PO SCH ×2 (08:33→21:29)
[2016-12-09] MEDS: Nystatin POWDER 30 GM BOTTLE TP SCH ×2 (08:34→21:30)
[2016-12-09] MEDS: Insulin LISPRO 300 UNITS/3 ML VIAL SQ SCH ×4 (08:36→22:32)
--- NOTE | 2016-12-09 14:02 | Internal Med Progress Note ---
Date of Encounter: 12/09/16 Time of Encounter: 09:30 - Assessment and plan (1) CHF (congestive heart failure) Current Visit: Yes Status: Acute Assessment and plan: Acute on chronic combined congestive heart failure. Patient was treated for this with IV Lasix and transitioned to by mouth Lasix. Continue education on sodium and fluid extracted diets. Patient noncompliant with dietary regimen thus far. Continue to educate. She denies shortness of breath or swelling above her norm. Echocardiogram was sailing and imaging enhancement agent impressions: Technically suboptimal due to body habitus. Echo contrast was used. Moderately dilated left ventricle. Moderate-severe LV systolic dysfunction, LVEF 35%. There is global hypokinesis with regional variations. Mild-moderate concentric left ventricular hypertrophy. Moderate left ventricular diastolic dysfunction. Mildly dilated right ventricle with normal systolic function. Mildly dilated left atrium. No evidence of intracardiac shunting with agitated saline contrast. No significant valve dysfunction. Mild pulmonary hypertension. Estimated RVSP is 36 mmHg. Qualifiers: Congestive heart failure type: combined Congestive heart failure chronicity : acute on chronic Qualified Code(s): I50.43 - Acute on chronic combined systolic (congestive) and diastolic (congestive) heart failure (2) Diabetes mellitus Current Visit: Yes Status: Chronic Assessment and plan: Uncontrolled with an A1c of 8.6%. Started on Tresiba. Follow-up outpatient. Qualifiers: Diabetes mellitus type: type 2 Diabetes mellitus complication status: with neurologic complications Diabetes mellitus complication detail: with polyneuropathy Diabetes mellitus continuous churn buttermaker insulin use: without jail use Qualified Code(s): E11.42 - Type 2 diabetes mellitus with diabetic polyneuropathy (3) HTN (hypertension) Current Visit: Yes Status: Chronic Assessment and plan: Controlled with her home medications, we will continue to trend. Qualifiers: Hypertension type: essential hypertension Qualified Code(s): I10 - Essential (primary) hypertension (4) Physical debility Current Visit: Yes Status: Chronic Assessment and plan: Evaluated by physical therapy who recommended ECF placement. According to social science manager, patient will likely not be placed until tomorrow. First site that the patient chose declined her, attempting second site at this time. Likely transfer tomorrow pending clinical outcomes. Of note, patient stating she needs a primary care provider. She also states that she needs transportation to and from all of her appointments. She has a lengthy history of noncompliance. She has several friends and family including her that drive but she still states that she needs transportation and frequently misses appointments. services coordinator on board. (5) UTI (urinary tract infection) Current Visit: Yes Status: Acute Assessment and plan: Urine culture positive for Escherichia coli. Has been started on Macrobid. Complete treatment course for a total of 7 days. Qualifiers: Urinary tract infection type: acute cystitis Hematuria presence: without hematuria Qualified Code(s): N30.00 - Acute cystitis without hematuria (6) Tick bite of abdomen Current Visit: Yes Status: Acute Assessment and plan: No signs at bite site. Lyme and RMSF screening negative. No indication for infectious disease consultation at this time. Continue to monitor pt for rash, fever, or flu like symptoms. Qualifiers: Encounter type: initial encounter Qualified Code(s): S30.861A - Insect bite (nonvenomous) of abdominal wall, initial encounter; W57.XXXA - Bitten or stung by nonvenomous insect and other nonvenomous arthropods, initial encounter (7) Morbid obesity with BMI of 50.0-59.9, adult Current Visit: Yes Status: Chronic Assessment and plan: Chronic. Lifestyle modification. - Subjective Interval history: Patient seen and examined. On examination, patient sitting upright on the side of her bed. Patient complains of her chronic back and leg pain. She denies shortness of breath above her norm. - Constitutional Vitals: Temp Pulse Resp BP Pulse Ox 97.9 F 67 15 123/72 93 12/09/16 06:45 12/09/16 06:45 12/09/16 06:45 12/09/16 06:45 12/09/16 06:45 General appearance: Present: cooperative, A&O X 3, morbidly obese, pleasant, no acute distress, answers questions appropriately - Head Head exam: Present: atraumatic, normocephalic - Eye Eye exam: Present: PERRL, conjuntiva pink, sclera anicteric Pupils: Present: PERRL - Neck Neck exam general surgery: Present: supple, trachea midline. Absent: lymphadenopathy - Respiratory Respiratory exam: Present: decreased breath sounds (2/2 body habitus). Absent: accessory muscle use, rales, respiratory distress, rhonchi, wheezes - Cardiovascular Cardiovascular exam: Present: distant heart sounds (2/2 body habitus), RRR, +S1 , +S2. Absent: diastolic murmur, gallop, rubs, systolic murmur - GI/Abdominal GI/Abdominal exam: Present: normal bowel sounds, soft, no peritoneal signs. Absent: distended, tenderness - Extremities Exam Extremities exam: Present: pedal edema (1+ bilaterally), warm, radial pulses palpable and symetrical. Absent: calf tenderness, cyanotic - Neurological Exam Neurological exam: Present: alert, CN II-XII intact, oriented X3, no focal deficits, strengths equal and symetr throughout. Absent: pronater drift, facial droop, speech deficit - Skin Skin exam: Present: dry, intact, normal color, warm Internal Medicine: Result - Labs CBC & Chem 7: 12/06/16 08:02 12/06/16 08:02 Consult Discharge Plan - Plan Instructions: Heart Failure (DC), Diabetes Mellitus Type 2 in Adults (DC) Additional Instructions: Follow-up with vascular surgery in 6 months for carotid artery stenosis Follow-up with cardiology in 1-2 weeks for congestive heart failure and cardiomyopathy Referrals: NO,PCP [Primary Care Provider] - (Follow-up in 1-2 weeks) Prescriptions: Insulin Degludec [Tresiba Flextouch U-100] 15 unit SQ DAILY #1 insuln.pen
[2016-12-09] MEDS: Insulin DETEMIR 100 UNIT/ML X5UNITS SQ SCH (21:30)
--- NOTE | 2016-12-10 08:38 | Internal Med Progress Note ---
<Albert Dodge - Last Filed: 12/10/16 15:54> Date of Encounter: 12/10/16 Time of Encounter: 15:54 - Assessment and plan (1) CHF (congestive heart failure) Current Visit: Yes Status: Acute Assessment and plan: Acute on chronic combined congestive heart failure. Treated with IV Lasix and transitioned to Lasix by mouth. Continue sodium associated diet. Patient's states her shortness of breath is improved. Leg edema improving. Echocardiogram with saline and imaging enhancement agent impressions: Technically suboptimal due to body habitus. Echo contrast was used. Moderately dilated left ventricle. Moderate-severe LV systolic dysfunction, LVEF 35%. There is global hypokinesis with regional variations. Mild-moderate concentric left ventricular hypertrophy. Moderate left ventricular diastolic dysfunction. Mildly dilated right ventricle with normal systolic function. Mildly dilated left atrium. No evidence of intracardiac shunting with agitated saline contrast. No significant valve dysfunction. Mild pulmonary hypertension. Estimated RVSP is 36 mmHg. Qualifiers: Congestive heart failure type: combined Congestive heart failure chronicity : acute on chronic Qualified Code(s): I50.43 - Acute on chronic combined systolic (congestive) and diastolic (congestive) heart failure (2) Diabetes mellitus Current Visit: Yes Status: Chronic Assessment and plan: Uncontrolled with an A1c of 8.6%. Started on Tresiba. Follow-up outpatient. Continue sliding scale insulin with Levemir 10 units subcutaneous daily at bedtime. Qualifiers: Diabetes mellitus type: type 2 Diabetes mellitus complication status: with neurologic complications Diabetes mellitus complication detail: with polyneuropathy Diabetes mellitus exterminator helper insulin use: without halfway use Qualified Code(s): E11.42 - Type 2 diabetes mellitus with diabetic polyneuropathy (3) HTN (hypertension) Current Visit: Yes Status: Chronic Assessment and plan: Controlled with her home medications, Continue to monitor. Qualifiers: Hypertension type: essential hypertension Qualified Code(s): I10 - Essential (primary) hypertension (4) Morbid obesity with BMI of 50.0-59.9, adult Current Visit: Yes Status: Chronic Assessment and plan: Chronic. Encouraged patient about lifestyle modification including diet and exercise. (5) Physical debility Current Visit: Yes Status: Chronic Assessment and plan: Evaluated by physical therapy recommended ECF placement. Patient awaiting placement at [facility]. She also states that she needs transportation to and from all of her appointments. She has a lengthy history of noncompliance. She has several friends and family including her that drive but she still states that she needs transportation and frequently misses appointments. director of housing and energy services on board. (6) Tick bite of abdomen Current Visit: Yes Status: Acute Assessment and plan: Stable. No signs at bite site. Lyme and RMSF screening negative. No indication for infectious disease consultation at this time. Continue to monitor pt for rash, fever, or flu like symptoms. Qualifiers: Encounter type: initial encounter Qualified Code(s): S30.861A - Insect bite (nonvenomous) of abdominal wall, initial encounter; W57.XXXA - Bitten or stung by nonvenomous insect and other nonvenomous arthropods, initial encounter (7) UTI (urinary tract infection) Current Visit: Yes Status: Acute Assessment and plan: Urine culture positive for Escherichia coli. On Macrobid day 4. Total 7 day course. Qualifiers: Urinary tract infection type: acute cystitis Hematuria presence: without hematuria Qualified Code(s): N30.00 - Acute cystitis without hematuria - Subjective Interval history: Patient has no problems arise she is awaiting placement. Patient was approved at [facility] and is awaiting authorization from care source - Constitutional Vitals: Temp Pulse Resp BP Pulse Ox 97.4 F L 65 18 116/64 98 12/10/16 08:04 12/10/16 08:04 12/10/16 08:04 12/10/16 08:04 12/10/16 08:04 General appearance: Present: cooperative, A&O X 3, morbidly obese, pleasant, no acute distress, answers questions appropriately - Respiratory Respiratory exam: Present: CTAB. Absent: accessory muscle use, rales, rhonchi, wheezes - Cardiovascular Cardiovascular exam: Present: RRR, +S1, +S2. Absent: diastolic murmur, gallop, rubs, systolic murmur - GI/Abdominal GI/Abdominal exam: Present: normal bowel sounds, soft, no peritoneal signs. Absent: distended, tenderness - Skin Additional comments: Patient has large skin tag on the left face below the left eye. Patient also has multiple black lesions or peeling on her right forearm that she states are secondary to fleabites. Internal Medicine: Result - Labs CBC & Chem 7: 12/06/16 08:02 12/06/16 08:02 Consult Discharge Plan - Plan Instructions: Heart Failure (DC), Diabetes Mellitus Type 2 in Adults (DC) Additional Instructions: Follow-up with vascular surgery in 6 months for carotid artery stenosis Follow-up with cardiology in 1-2 weeks for congestive heart failure and cardiomyopathy Referrals: [facility] [Provider Group] Joanie Saul MD [Partnered Physician] - 12/25/16 12:30 pm (You will be seeing Tawanda Young CNP.) NO,PCP [Primary Care Provider] - (Follow-up in 1-2 weeks) Prescriptions: Insulin Degludec [Tresiba Flextouch U-100] 15 unit SQ DAILY #1 insuln.pen <Edwardo Gonzalez P - Last Filed: 12/10/16 17:45> Date of Encounter: 12/10/16 - Constitutional Vitals: Temp Pulse Resp BP Pulse Ox 97.5 F L 62 18 104/71 97 12/10/16 15:45 12/10/16 15:45 12/10/16 15:45 12/10/16 15:45 12/10/16 15:45 Internal Medicine: Result - Labs CBC & Chem 7: 12/06/16 08:02 12/06/16 08:02 - Attending Attestation I examined this patient and my medical decision-making was reviewed with the SPOT WELDER/PA/Advanced Practice Nurse/Resident Physician. I agree with the documented findings, disposition and treatment plan as described except to the extent set forth below.
[2016-12-10] MEDS: Nitrofurantoin (BID) 100 MG CAPSULE PO SCH ×2 (08:46→16:52)
[2016-12-10] MEDS: Nystatin POWDER 30 GM BOTTLE TP SCH ×2 (08:46→20:50)
[2016-12-10] MEDS: Gabapentin 300 MG CAPSULE PO SCH ×2 (08:46→20:49)
[2016-12-10] MEDS: Aspirin 81 MG TAB.CHEW PO SCH (08:46)
[2016-12-10] MEDS: Furosemide 20 MG TABLET PO SCH ×2 (08:48→16:52)
[2016-12-10] MEDS: Insulin LISPRO 300 UNITS/3 ML VIAL SQ SCH ×4 (08:51→20:49)
[2016-12-10] MEDS: Acetaminophen 325 MG TABLET PO PRN ×2 (10:06→23:16)
[2016-12-10] MEDS: Insulin DETEMIR 100 UNIT/ML X5UNITS SQ SCH (20:49)
[2016-12-11] MEDS: Aspirin 81 MG TAB.CHEW PO SCH (08:32)
[2016-12-11] MEDS: Furosemide 20 MG TABLET PO SCH ×2 (08:33→17:32)
[2016-12-11] MEDS: Nitrofurantoin (BID) 100 MG CAPSULE PO SCH ×2 (08:33→17:32)
[2016-12-11] MEDS: Gabapentin 300 MG CAPSULE PO SCH ×2 (08:33→20:32)
[2016-12-11] MEDS: Insulin LISPRO 300 UNITS/3 ML VIAL SQ SCH ×4 (08:33→20:31)
[2016-12-11] MEDS: Nystatin POWDER 30 GM BOTTLE TP SCH ×2 (09:41→20:32)
--- NOTE | 2016-12-11 13:23 | Event Note ---
<DarAlbert Delgado - Last Filed: 12/11/16 13:19> Date of Encounter: 12/11/16 Time of Encounter: 13:19 Patient has no new complaints today. She is tolerating her diet. Denies CP, sob , nausea, difficultly urinating. PE: Gen: alert oriented x3 pleasant, obese Heart: RRR no murmur Lungs: CTAB Abdomen: non tender, non distended, +BS Extremeties: absent pedal edema, Radial and dorasalis pedis pulses 2/4 Patient is awaiting placement at [facility]. Need authorization from insurance. <Edwardo Gonzalez - Last Filed: 12/15/16 17:44> Date of Encounter: 12/15/16 I examined this patient and my medical decision-making was reviewed with the METAL BURRER/PA/Advanced Practice Nurse/Resident Physician. I agree with the documented findings, disposition and treatment plan as described except to the extent set forth below.
[2016-12-11] MEDS: Acetaminophen 325 MG TABLET PO PRN (17:40)
[2016-12-11] MEDS: Insulin DETEMIR 100 UNIT/ML X5UNITS SQ SCH (20:31)
[2016-12-12 08:03] VITALS: BP 136/82
[2016-12-12] MEDS: Aspirin 81 MG TAB.CHEW PO SCH (08:19)
[2016-12-12] MEDS: Insulin LISPRO 300 UNITS/3 ML VIAL SQ SCH (08:19)
[2016-12-12] MEDS: Gabapentin 300 MG CAPSULE PO SCH (08:19)
[2016-12-12] MEDS: Furosemide 20 MG TABLET PO SCH (08:19)
[2016-12-12] MEDS: Nystatin POWDER 30 GM BOTTLE TP SCH (08:20)
[2016-12-12] MEDS: Acetaminophen 325 MG TABLET PO PRN (08:24)
== END 2016-12-12 11:10 ==
LOC: 3BNU → SUATTDRO 01:52
PROVIDERS: ADMIT Internal Medicine; ATTEND Nurse Practitioner Family